=== PATIENT | male | born 2000 | race Caucasian/White ===

== ENCOUNTER 2019-06-05 09:26 | Emergency (ER) | payer OTHER ==
[~2019-06-05] VITALS: Ht 167.6 cm; Wt 77.1 kg
[2019-06-05 09:36] VITALS: BP_SYST 159
[2019-06-05] MEDS ORDERED: HYDROcodone/ACETAMIN 7.5-325 MG TAB PO ONE (09:45)
[2019-06-05] MEDS ORDERED: IBUPROFEN 600 MG TABLET PO ONE (09:45)
[2019-06-05] MEDS ORDERED: KETOROLAC TROMETHAMINE 60 MG/2 ML VIAL IM ONE (11:15)
[2019-06-05 12:12] VITALS: BP_SYST 159
== END 2019-06-05 12:12 | disposition home or self-care (01) ==
LOC: SED 09:26
DX: S13.4XXA Sprain of ligaments of cervical spine, initial encounter (principal); S33.5XXA Sprain of ligaments of lumbar spine, initial encounter; V49.59XA Passenger injured in collision with other motor vehicles in traffic accident, initial encounter; Y93.89 Activity, other specified; Y92.89 Other specified places as the place of occurrence of the external cause; Y99.8 Other external cause status
CPT/HCPCS: 71045; 72040; 72100; 96372; 99283; J1885